=== PATIENT | female | born 1990 | race Caucasian/White ===

== ENCOUNTER 2017-02-10 15:20 | Emergency (ER) | payer OTHER ==
[2017-02-10 15:28] VITALS: BP 119/73
--- NOTE | 2017-02-10 16:43 | ED Physician Documentation ---
PD HPI UPPER EXT INJURY - Stated complaint Stated Complaint: DIRTY INST STICK - Chief complaint Chief Complaint: Ext Problem - History obtained from History obtained from: Patient - History of Present Illness Location: Right, Finger (Puncture by a dirty dental instrument at work last night.She is up-to-date on tetanus.She is up-to-date on tetanus.She is . She is immunized against hepatitis B.) Review of Systems Constitutional: denies: Fever, Chills Cardiac: denies: Chest pain / pressure, Palpitations Respiratory: denies: Dyspnea, Cough PD PAST MEDICAL HISTORY - Past Surgical History Past Surgical History: No General: Cholecystectomy Ortho: Hip replacement - Present Medications Home Medications: Ambulatory Orders Medication Instructions Recorded Confirmed Pnv95/Ferrous Fumarate/FA 1 each PO DAILY 07/22/16 02/10/17 [ Tablet] - Allergies Allergies/Adverse Reactions: Allergies Allergy/AdvReac Type Severity Reaction Status Date / Time No Known Drug Allergies Allergy Verified 02/10/17 16:35 - Social History Does the pt smoke?: No Smoking Status: Never smoker Does the pt drink ETOH?: No Does the pt have substance abuse?: No - Immunizations Immunizations are current?: No Immunizations: TDAP >10years/unknown - POLST Patient has POLST: No PD ED PE NORMAL - Vitals Vital signs reviewed: Yes - General General: Alert and oriented X 3, No acute distress - Extremities Extremities: Other (Almost invisible puncture wound on the right thumb) - Neuro Neuro: Alert and oriented X 3, Normal speech Results - Vitals Vitals: Vital Signs - 24 hr 02/10/17 15:26 Temperature 36.3 C L Heart Rate 85 Respiratory 16 Rate Blood Pressure 119/73 O2 Saturation 99 Oxygen O2 Source Room air PD MEDICAL DECISION MAKING - ED course ED course: We discussed ongoing testing and potential postexposure prophylaxis which she declined. Departure - Departure Disposition: 01 Home, Self Care Clinical Impression: Employee exposure to body fluids Condition: Good Record reviewed to determine appropriate education?: Yes Comments: Talk with your doctor about repeat testing for hepatitis and HIV in 2 months and 6 months.
== END 2017-02-10 17:04 | disposition home or self-care (01) ==
LOC: ED 15:20
DX: Z77.21 Contact with and (suspected) exposure to potentially hazardous body fluids (principal); Z96.649 Presence of unspecified artificial hip joint
CPT/HCPCS: 1040M; 36415; 80074; 87389; 99282; 99283; 87341

== ENCOUNTER 2017-04-25 10:51 | Outpatient (CLI) | payer MEDICAID ==
--- NOTE | 2017-04-25 12:27 | Ultrasound Report ---
PELVIC ULTRASOUND: 04/25/2017 HISTORY: Vaginal bleeding 6 weeks . TECHNIQUE: Real-time scanning by the vault installer with saved static images reviewed. Transabdominal scanning for global evaluation. Transvaginal scanning for improved evaluation of the endometrium. FINDINGS: UTERUS: 8.2 x 4 x 6.1 cm, volume 104 mL. Normal echotexture. ENDOMETRIAL ECHO THICKNESS: 12 mm. In the fundal area, there is an area of increased echogenicity with some shadowing, trace fluid, and increased vascularity. RIGHT OVARY: 5.4 x 1.5 x 2.2 cm, volume 10 mL, normal echotexture and blood flow. LEFT OVARY: 4.5 x 1.5 x 2.2 cm, volume 7.8 mL, normal echotexture and blood flow. FREE FLUID: None. IMPRESSION: SMALL AREA OF INCREASED ECHOGENICITY, SHADOWING, AND VASCULARITY IN THE FUNDAL ENDOMETRIAL REGION, WORRISOME FOR RETAINED PRODUCTS OF CONCEPTION. JOB #: [id number] EXT JOB #: [id number] [facility]
== END 2017-04-25 10:52 | disposition home or self-care (01) ==
LOC: DI 10:51
PROVIDERS: ATTEND Midwife
DX: O72.1 Other immediate postpartum hemorrhage (principal)
CPT/HCPCS: 76830; 76856

== ENCOUNTER 2017-04-30 12:58 | Outpatient (CLI) | payer MEDICAID ==
[2017-04-30 13:33] LABS: BASOPHILS % (AUTO) 0.4 %; EOSINOPHILS # (AUTO) 0.2 10^3/uL (0.0-0.7); HCT - HEMATOCRIT 34.2 % (37.0-47.0); HGB - HEMOGLOBIN 11.6 g/dL (12.0-16.0); LYMPHOCYTES # (AUTO) 2.7 10^3/uL (1.5-3.5); LYMPHOCYTES % (AUTO) 44.2 %; MEAN CORPUSCULAR HEMOGLOBIN 29.8 pg (27.0-31.0); MEAN CORPUSCULAR HGB CONC 33.8 g/dL (32.0-36.0); MEAN CORPUSCULAR VOLUME 88.2 fL (81.0-99.0); MEAN PLATELET VOLUME 7.8 fL (7.9-10.8); MONOCYTES # (AUTO) 0.4 10^3/uL (0.0-1.0); NEUTROPHILS # (AUTO) 2.8 10^3/uL (1.5-6.6); NEUTROPHILS % (AUTO) 46.4 %; NUCLEATED RED BLOOD CELLS AUTO 0.1 /100WBC; RED BLOOD COUNT 3.88 10^6/uL (4.20-5.40); RED CELL DISTRIBUTION WIDTH 12.1 % (12.0-15.0); UNCORRECTED WHITE BLOOD COUNT 6.1 x10^3/uL; WHITE BLOOD COUNT 6.1 x10^3/uL (4.8-10.8)
== END 2017-04-30 12:59 | disposition home or self-care (01) ==
LOC: LAB 12:58
PROVIDERS: ATTEND Obstetrics & Gynecology
DX: Z01.812 Encounter for preprocedural laboratory examination (principal); O73.0 Retained placenta without hemorrhage
CPT/HCPCS: 36415; 81025; 84703; 85025; 86850; 86900; 86901

== ENCOUNTER 2017-05-21 15:51 | Outpatient (CLI) | payer MEDICAID | END 2017-05-21 15:52 | disposition home or self-care (01) | LOC: LAB.R 15:51 | PROVIDERS: ATTEND Obstetrics & Gynecology | DX: Z11.3 Encounter for screening for infections with a predominantly sexual mode of transmission (principal) | CPT/HCPCS: 87491; 87591 ==

== ENCOUNTER 2017-07-10 17:36 | Outpatient (CLI) | payer OTHER | END 2017-07-10 17:37 | disposition critical access hospital (66) | LOC: EMS 17:36 | PROVIDERS: ATTEND Surgery | DX: M54.5 Low back pain (principal) | CPT/HCPCS: A0425; A0429 ==

== ENCOUNTER 2017-07-10 17:51 | Emergency (ER) | payer OTHER ==
[2017-07-10 17:56] VITALS: BP 108/71
[2017-07-10] MEDS ORDERED: CYCLOBENZAPRINE 10 MG TABLET PO STA (19:19)
[2017-07-10] MEDS ORDERED: LIDOCAINE PATCH 5% TOP STA (19:19)
[2017-07-10] MEDS ORDERED: IBUPROFEN 400 MG TABLET PO STA (19:19)
[2017-07-10] MEDS ORDERED: LIDOCAINE PATCH 5% TOP ONE (19:37)
[2017-07-10] MEDS ORDERED: IBUPROFEN 400 MG TABLET PO ONE (19:37)
[2017-07-10] MEDS ORDERED: CYCLOBENZAPRINE 10 MG TABLET PO ONE (19:37)
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
== END 2017-07-10 20:30 | disposition home or self-care (01) ==
LOC: EDUNIT# → ED 17:51
DX: S23.3XXA Sprain of ligaments of thoracic spine, initial encounter (principal); V53.5XXA Driver of pick-up truck or van injured in collision with car, pick-up truck or van in traffic accident, initial encounter; Y92.411 Interstate highway as the place of occurrence of the external cause
CPT/HCPCS: 99283; A9270

== ENCOUNTER 2017-07-31 07:16 | Emergency (ER) | payer OTHER ==
[2017-07-31 07:27] VITALS: BP 123/85
[2017-07-31] MEDS ORDERED: SODIUM CHLORIDE 0.9% 1,000 ML IV ONE (07:28)
[2017-07-31] MEDS ORDERED: ONDANSETRON 4 MG/2 ML VIAL IVP STA (07:28)
--- NOTE | 2017-07-31 07:35 | ED Physician Documentation ---
PD HPI ABD PAIN - Stated complaint Stated Complaint: VOMITING - Chief complaint Chief Complaint: Abd Pain - History obtained from History obtained from: Patient - History of Present Illness Timing - onset: Yesterday Timing - details: Still present in ED Quality: Cramping Location: All over / everywhere Associated symptoms: Fever, Nausea, Vomiting, Diarrhea. No: Dysuria - Additional information Additional information: The patient is a 27-year-old female who presents with vomiting that started last night, with multiple episodes through the night. She reports generalized abdominal discomfort, with lower abdominal cramping. She has had 3 episodes of watery diarrhea, and reports low-grade fever. She denies dysuria. Prior to onset of her abdominal symptoms she reports having upper respiratory symptoms, with cough, sore throat, and headache. Other family members have been sick with cold and flu. She is currently breast-feeding, and has an IUD in place. Review of Systems Constitutional: reports: Fever, Myalgias Ears: denies: Tinnitus/ringing Nose: reports: Congestion Throat: reports: Sore throat (Mild) Cardiac: denies: Chest pain / pressure Respiratory: reports: Cough. denies: Dyspnea GI: reports: Abdominal Pain, Nausea, Vomiting, Diarrhea : reports: Control (IUD). 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 - Present Medications Home Medications: Ambulatory Orders Medication Instructions Recorded Confirmed Promethazine [Phenergan] 25 - 50 mg PO Q6H PRN #10 tab 07/31/17 - Allergies Allergies/Adverse Reactions: Allergies Allergy/AdvReac Type Severity Reaction Status Date / Time No Known Drug Allergies Allergy Verified 05/01/17 14:34 - Social History Does the pt smoke?: No Smoking Status: Never smoker Does the pt drink ETOH?: No Does the pt have substance abuse?: No - Immunizations Immunizations are current?: No Immunizations: TDAP >10years/unknown - POLST Patient has POLST: No PD ED PE NORMAL - Vitals Vital signs reviewed: Yes (Tachycardic) - General General: Alert and oriented X 3, Well developed/nourished - HEENT HEENT: Atraumatic, EOMI, Moist mucous membranes, Pharynx benign - Neck Neck: Supple, no meningeal sign, No adenopathy, No JVD - Cardiac Cardiac: No murmur, Other (Rapid rate, regular rhythm.) - Respiratory Respiratory: No respiratory distress, Clear bilaterally - Abdomen Abdomen: Soft, Non distended, No organomegaly, Other (Decreased bowel tones. Mild lower abdominal tenderness to palpation, without rebound or guarding.) - Back Back: No CVA TTP - Derm Derm: No rash - Extremities Extremities: No edema, No calf tenderness / cord - Neuro Neuro: Alert and oriented X 3, No motor deficit, Normal speech Results - Vitals Vitals: Oxygen O2 Source Room air - Labs Labs: Laboratory Tests 07/31/17 07/31/17 07/31/17 08:05 08:05 08:05 WBC 10.4 RBC 4.48 Hgb 12.5 Hct 36.3 L MCV 81.1 MCH 27.9 MCHC 34.4 RDW 13.0 Plt Count 213 MPV 8.0 Neut # 8.5 H Lymph # 1.4 L [place] # 0.5 Eos # 0.0 Baso # 0.0 Absolute Nucleated RBC 0.00 Nucleated RBC % 0.0 Sodium 137 Potassium 3.6 Chloride 104 Carbon Dioxide 22 Anion Gap 11.0 BUN 15 Creatinine 0.6 Estimated GFR (MDRD) 120 Glucose 101 H Calcium 8.8 Total Bilirubin 0.7 AST 25 ALT 24 Alkaline Phosphatase 91 Total Protein 7.9 Albumin 3.9 Globulin 4.0 Albumin/Globulin Ratio 1.0 Lipase 24 Urine Color YELLOW Urine Clarity CLEAR Urine pH 6.0 Ur Specific [place] 1.025 Urine Protein NEGATIVE Urine Glucose (UA) NEGATIVE Urine Ketones NEGATIVE Urine Occult Blood NEGATIVE Urine Nitrite NEGATIVE Urine Bilirubin NEGATIVE Urine Urobilinogen 0.2 (NORMAL) Ur Leukocyte Esterase NEGATIVE Ur Microscopic Review NOT INDICATED Urine Culture Comments NOT INDICATED Urine HCG, Qual NEGATIVE PD MEDICAL DECISION MAKING - ED course Complexity details: reviewed results, re-evaluated patient, considered differential, d/w patient, d/w family ED course: The patient's presentation is most consistent with acute viral syndrome, with fever,myalgias, cough, vomiting, and diarrhea. CBC and chemistry panel, as well as urinalysis, or normal. Her presentation does not suggest meningitis, pneumonia, or acute abdomen. Treatment in the emergency department included administration of normal saline 1 L IV, and ondansetron 4 mg IV. Her symptoms improved with the above treatment. She is being discharged with a prescription for Phenergan. I discussed with her and her the expected course of illness, symptomatic treatment and outpatient follow-up, as well as worrisome signs or symptoms that should prompt reevaluation in the emergency department. Departure - Departure Disposition: 01 Home, Self Care Clinical Impression: Acute viral syndrome Condition: Stable Instructions: ED Viral Syndrome Follow-Up: ROSE ZENG MD [Physician No Access] - Prescriptions: Promethazine [Phenergan] 25 - 50 mg PO Q6H PRN #10 tab PRN Reason: Nausea / Vomiting Comments: Drink plenty of fluids. You can use Tylenol or ibuprofen if needed for fever or discomfort. You can use Phenergan as prescribed if needed for nausea. Follow up with your primary physician within 1-2 weeks. Call to schedule an appointment. Return to the emergency department if you develop increasing difficulty breathing, persistent vomiting, or otherwise worsening symptoms. Forms: Activity restrictions Discharge Date/Time: 07/31/17 10:16
[2017-07-31 08:21] LABS: BASOPHILS % (AUTO) 0.2 %; EOSINOPHILS % (AUTO) 0.4 %; HGB - HEMOGLOBIN 12.5 g/dL (12.0-16.0); LYMPHOCYTES # (AUTO) 1.4 10^3/uL (1.5-3.5); MEAN CORPUSCULAR HEMOGLOBIN 27.9 pg (27.0-31.0); MEAN CORPUSCULAR HGB CONC 34.4 g/dL (32.0-36.0); MEAN CORPUSCULAR VOLUME 81.1 fL (81.0-99.0); MONOCYTES # (AUTO) 0.5 10^3/uL (0.0-1.0); MONOCYTES % (AUTO) 4.5 %; NEUTROPHILS # (AUTO) 8.5 10^3/uL (1.5-6.6); NEUTROPHILS % (AUTO) 81.9 %; PLT - PLATELET COUNT 213 10^3/uL (130-450); RED BLOOD COUNT 4.48 10^6/uL (4.20-5.40); WHITE BLOOD COUNT 10.4 x10^3/uL (4.8-10.8)
[2017-07-31 08:33] LABS: BILIRUBIN,URINE NEGATIVE (NEGATIVE); GLUCOSE, URINE (UA) NEGATIVE (NEGATIVE); KETONES,URINE (UA) NEGATIVE (NEGATIVE); LEUKOCYTE ESTERASE, URINE NEGATIVE (NEGATIVE); NITRITE,URINE NEGATIVE (NEGATIVE); OCCULT BLOOD,URINE NEGATIVE (NEGATIVE); PROTEIN,URINE NEGATIVE (NEGATIVE); UROBILINOGEN,URINE 0.2 (NORMAL) E.U./dL (NORMAL)
[2017-07-31 08:34] LABS: ALBUMIN 3.9 g/dL (3.2-5.5); BILIRUBIN,TOTAL 0.7 mg/dL (0.2-1.0); CALCIUM 8.8 mg/dL (8.5-10.3); CREATININE 0.6 mg/dL (0.4-1.0); TOTAL PROTEIN 7.9 g/dL (6.7-8.2)
[2017-07-31 08:35] LABS: CLARITY,URINE CLEAR (CLEAR)
[2017-07-31 08:36] LABS: HCG UR QUAL NEGATIVE
== END 2017-07-31 10:16 | disposition home or self-care (01) ==
LOC: ED 07:16
DX: B34.9 Viral infection, unspecified (principal); Z97.5 Presence of (intrauterine) contraceptive device
CPT/HCPCS: 36415; 80053; 81001; 81003; 81025; 83690; 85025; 87086; 96361; 96374; 99283; 99284

== ENCOUNTER 2018-08-08 08:15 | Emergency (ER) | payer OTHER ==
--- NOTE | 2018-08-08 08:28 | ED Physician Documentation ---
History of Present Illness - Stated complaint Stated Complaint: VOMITING - Chief complaint Chief Complaint: Abd Pain - Additonal information Additional information: hx from pt healthy 28 y/o f doubts pregnnat has IUD ate [employer] cheese sticks and nachos at [employer] last night on the way home had a stomach ache - upper crampy then NVD all night no blood no travel no sick contacts Review of Systems Constitutional: denies: Fever Cardiac: denies: Chest pain / pressure Respiratory: denies: Dyspnea GI: reports: Abdominal Pain, Nausea, Vomiting, Diarrhea : reports: Control (IUD). 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 - Present Medications Home Medications: Ambulatory Orders Medication Instructions Recorded Confirmed Cyclobenzaprine [Flexeril] 10 mg PO TID PRN 08/08/18 08/08/18 Dicyclomine [Bentyl] 10 mg PO Q8H PRN #20 capsule 08/08/18 Ibuprofen 600 mg PO BID PRN 08/08/18 08/08/18 Ondansetron Odt [Zofran] 4 mg TL Q6H PRN #10 tablet 08/08/18 raNITIdine [Zantac] 150 mg PO BID #60 tablet 08/08/18 - Allergies Allergies/Adverse Reactions: Allergies Allergy/AdvReac Type Severity Reaction Status Date / Time No Known Drug Allergies Allergy Verified 08/08/18 08:26 - Social History Does the pt smoke?: No Smoking Status: Never smoker Does the pt drink ETOH?: No Does the pt have substance abuse?: No - Immunizations Immunizations are current?: No Immunizations: TDAP >10years/unknown - POLST Patient has POLST: No PD ED PE NORMAL - Vitals Vital signs reviewed: Yes - General General: Alert and oriented X 3 - HEENT HEENT: PERRL - Neck Neck: Supple, no meningeal sign - Cardiac Cardiac: RRR - Respiratory Respiratory: No respiratory distress, Clear bilaterally - Abdomen Abdomen: Soft, Other (TTP upper abd s rebound or gaurding, neg murphys) - Neuro Neuro: Alert and oriented X 3 Results - Vitals Vitals: Vital Signs - 24 hr 08/08/18 08/08/18 08:22 09:12 Temperature 36.8 C Heart Rate 102 H 85 Respiratory 18 16 Rate Blood Pressure 123/80 110/75 O2 Saturation 99 99 Oxygen O2 Source Room air - Labs Labs: Laboratory Tests 08/08/18 08/08/18 08/08/18 08:24 08:40 08:40 WBC 9.1 RBC 4.41 Hgb 13.1 Hct 38.3 MCV 86.8 MCH 29.7 MCHC 34.2 RDW 12.5 Plt Count 202 MPV 8.2 Neut # (Auto) 7.9 H Lymph # (Auto) 0.8 L [place] # (Auto) 0.3 Eos # (Auto) 0.1 Baso # (Auto) 0.0 Absolute Nucleated RBC 0.00 Nucleated RBC % 0.0 Sodium 135 Potassium 3.5 Chloride 104 Carbon Dioxide 23 Anion Gap 8.0 BUN 11 Creatinine 0.6 Estimated GFR (MDRD) 119 Glucose 107 H Calcium 8.7 Total Bilirubin 1.4 H AST 18 ALT 18 Alkaline Phosphatase 57 Total Protein 8.1 Albumin 4.2 Globulin 3.9 Albumin/Globulin Ratio 1.1 Lipase 29 Urine Color YELLOW Urine Clarity CLEAR Urine pH 6.0 Ur Specific [place] 1.020 Urine Protein NEGATIVE Urine Glucose (UA) NEGATIVE Urine Ketones TRACE Urine Occult Blood TRACE-INTA Urine Nitrite NEGATIVE Urine Bilirubin NEGATIVE Urine Urobilinogen 0.2 (NORMAL) Ur Leukocyte Esterase TRACE H Urine RBC 0-5 Urine WBC 0-3 Ur Squamous Epith Cells FEW Squamous Urine Bacteria Few Ur Microscopic Review INDICATED Urine Culture Comments INDICATED Urine HCG, Qual NEGATIVE PD MEDICAL DECISION MAKING - ED course ED course: bili noted - pt s/p burt and no foal ruq pain much much better after IVF toradol pepcid zofran and phenergan stool cx pending serial abd exam = no more TTP will dc Departure - Departure Disposition: 01 Home, Self Care Clinical Impression: Food poisoning Qualifiers: Encounter type: initial encounter Injury intent: accidental or unintentional Qualified Code(s): T62.91XA - Toxic effect of unspecified noxious substance eaten as food, accidental (unintentional), initial encounter Condition: Good Instructions: ED Gastroenteritis Vs Food Poison Prescriptions: Dicyclomine [Bentyl] 10 mg PO Q8H PRN #20 capsule PRN Reason: Stomach cramps Ondansetron Odt [Zofran] 4 mg TL Q6H PRN #10 tablet PRN Reason: Nausea / Vomiting raNITIdine [Zantac] 150 mg PO BID #60 tablet Comments: Rest and drink plenty of fluids. The ER staff will call you if the stool culture results indicate you need to be on antibiotics. Follow up with your PMD if not better by Saturday Return to the ER if worse Forms: Activity restrictions
[2018-08-08] MEDS ORDERED: FAMOTIDINE 20 MG/50 ML 50 ML IV ONE (08:29)
[2018-08-08] MEDS ORDERED: SODIUM CHLORIDE 0.9% 1,000 ML IV ONE (08:29)
[2018-08-08] MEDS ORDERED: ONDANSETRON 4 MG/2 ML VIAL IVP STA (08:29)
[2018-08-08 08:49] LABS: BASOPHILS % (AUTO) 0.1 %; EOSINOPHILS # (AUTO) 0.1 10^3/uL (0.0-0.7); EOSINOPHILS % (AUTO) 0.6 %; HGB - HEMOGLOBIN 13.1 g/dL (12.0-16.0); LYMPHOCYTES # (AUTO) 0.8 10^3/uL (1.5-3.5); LYMPHOCYTES % (AUTO) 8.8 %; MEAN CORPUSCULAR HEMOGLOBIN 29.7 pg (27.0-31.0); MEAN CORPUSCULAR HGB CONC 34.2 g/dL (32.0-36.0); MEAN CORPUSCULAR VOLUME 86.8 fL (81.0-99.0); MEAN PLATELET VOLUME 8.2 fL (7.9-10.8); MONOCYTES # (AUTO) 0.3 10^3/uL (0.0-1.0); NEUTROPHILS # (AUTO) 7.9 10^3/uL (1.5-6.6); NEUTROPHILS % (AUTO) 87.5 %; PLT - PLATELET COUNT 202 10^3/uL (130-450); RED BLOOD COUNT 4.41 10^6/uL (4.20-5.40); RED CELL DISTRIBUTION WIDTH 12.5 % (12.0-15.0); WHITE BLOOD COUNT 9.1 x10^3/uL (4.8-10.8)
[2018-08-08 09:00] LABS: ALBUMIN 4.2 g/dL (3.2-5.5); ALBUMIN/GLOBULIN RATIO 1.1 (1.0-2.2); BILIRUBIN,TOTAL 1.4 mg/dL (0.2-1.0); CALCIUM 8.7 mg/dL (8.5-10.3); CREATININE 0.6 mg/dL (0.4-1.0); TOTAL PROTEIN 8.1 g/dL (6.7-8.2)
[2018-08-08 09:04] LABS: BILIRUBIN,URINE NEGATIVE (NEGATIVE); GLUCOSE, URINE (UA) NEGATIVE (NEGATIVE); KETONES,URINE (UA) TRACE mg/dL (NEGATIVE); LEUKOCYTE ESTERASE, URINE TRACE (NEGATIVE); NITRITE,URINE NEGATIVE (NEGATIVE); OCCULT BLOOD,URINE TRACE-INTA (NEGATIVE); PROTEIN,URINE NEGATIVE (NEGATIVE); UROBILINOGEN,URINE 0.2 (NORMAL) E.U./dL (NORMAL)
[2018-08-08 09:06] LABS: CLARITY,URINE CLEAR (CLEAR); HCG UR QUAL NEGATIVE
[2018-08-08 09:13] VITALS: BP 110/75
[2018-08-08 09:18] LABS: BACTERIA,URINE Few /HPF (None Seen); RBC,URINE 0-5 /HPF (0-5); SQUAMOUS EPITHELIAL CELL,UR FEW Squamous (<= Few)
[2018-08-08] MEDS ORDERED: KETOROLAC 30 MG/ML VIAL IVP STA (09:36)
[2018-08-08] MEDS ORDERED: PROMETHAZINE INJ 25 MG in SODIUM CHLORIDE 0.9% 50 ML IV STA (10:13)
== END 2018-08-08 12:06 | disposition home or self-care (01) ==
LOC: ED 08:15
DX: T62.91XA Toxic effect of unspecified noxious substance eaten as food, accidental (unintentional), initial encounter (principal); Z96.649 Presence of unspecified artificial hip joint
CPT/HCPCS: 36415; 80053; 81001; 81025; 83690; 85025; 87045; 87046; 87086; 96365; 96367; 96375; 99283; 99284; J7040; 81003

== ENCOUNTER 2019-10-09 14:28 | Outpatient (CLI) | payer OTHER ==
--- NOTE | 2019-10-09 15:13 | CT Report ---
Reason: CHRONIC SINUSITIS Procedure Date: 10/09/2019 Accession Number: [id number] / [id number] Procedure: CT - Sinuses CPT Code: Final Report FULL RESULT: EXAM: CT SINUS EXAM DATE: 10/09/2019 02:39 PM. HISTORY: 29-year-old presenting with chronic sinusitis-type symptoms. Evaluate for sinus pathology. COMPARISONS: None. TECHNIQUE: Routine multi-axial CT imaging performed through the sinuses. Iodinated IV contrast: None. Reconstructions: Multiplanar reformats. In accordance with CT protocol optimization, one or more of the following dose reduction techniques were utilized for this exam: automated exposure control, adjustment of mA and/or KV based on patient size, or use of iterative reconstructive technique. FINDINGS: RIGHT Frontal: Minimal mucosal thickening. Ethmoid: Normal. Maxillary: Normal. Sphenoid: Normal. Drainage Pathways: The frontal recess, ostiomeatal complex and sphenoethmoidal recess are patent and normal. LEFT Frontal: Minimal mucosal thickening. Ethmoid: Minimal mucosal thickening with opacification of a single ethmoid air cell. Maxillary: Minimal mucosal thickening. Sphenoid: Tiny mucosal retention cyst versus polyp. Drainage Pathways: The frontal recess, ostiomeatal complex and sphenoethmoidal recess are patent and normal. Nasal Cavity: Normal. No mass or significant anatomic abnormality evident. Osseous Structures: Unremarkable. Orbits: Unremarkable. Other: None. IMPRESSION: 1. Minimal mucosal thickening of the bilateral frontal sinuses, left ethmoid air cells, and left maxillary sinus. 2. Visualized major paranasal sinus drainage pathways appear patent. RADIA
== END 2019-10-09 14:29 | disposition home or self-care (01) ==
LOC: DI 14:28
PROVIDERS: ATTEND Otolaryngology
DX: J32.9 Chronic sinusitis, unspecified (principal)
CPT/HCPCS: 70486

== ENCOUNTER 2019-12-03 10:43 | Outpatient (CLI) | payer MEDICAID ==
--- NOTE | 2019-12-03 12:06 | Ultrasound Report ---
Reason: TEST POSITIVE Procedure Date: 12/03/2019 Accession Number: [id number] / [id number] Procedure: US - OB First Trimester CPT Code: Final Report FULL RESULT: EXAM: FIRST TRIMESTER OBSTETRIC ULTRASOUND (Less than 11 weeks) EXAM DATE: 12/03/2019 11:28 AM. CLINICAL HISTORY: TEST POSITIVE. LMP: 10/15/2019. COMPARISONS: None. TECHNIQUE: Transabdominal ultrasound examination with static image documentation. CLINICAL DATES: EGA 7 weeks 0 days with ADELIA 07/21/2020 based on LMP. ASSESSMENT: Gestational Sac: Single intrauterine. Normal shape. Mean gestational sac diameter: 23.9 mm = 7 weeks 3 days. Embryo: CRL (crown-rump length) 9.9 mm = 7 weeks 0 days (ADELIA 07/21/2020). Cardiac activity: 144 beats per minute. Yolk sac: 3.6 mm. Amniotic fluid: Not accurately assessed at this gestational age. Early placenta: Not visible at this gestational age. Other: No perigestational fluid collection demonstrated. MATERNAL STRUCTURES: Uterus: Anteverted. Unremarkable. Cervix: Closed. Right Ovary/Adnexa: The ovary measures 3.9 x 3.0 x 1.8 cm, volume 11.0 cc. Probable 1.9 cm corpus luteum. Left Ovary/Adnexa: The ovary measures 3.1 x 1.9 x 2.3 cm, volume 7.1 cc. Unremarkable. Free Fluid: None. Other: None. IMPRESSION: 1. Single viable intrauterine at EGA 7 weeks 0 days with ADELIA 07/21/2020 based on crown-rump length, which is concordant with clinical dates. 2. Assigned dating is ADELIA 07/21/2020 based on LMP. ANUPAM
== END 2019-12-03 10:44 | disposition home or self-care (01) ==
LOC: DI 10:43
PROVIDERS: ATTEND Advanced Practice Midwife
DX: Z32.01 Encounter for pregnancy test, result positive (principal)
CPT/HCPCS: 76801; 76817

== ENCOUNTER 2019-12-24 08:00 | Outpatient (CLI) | payer MEDICAID ==
[2019-12-24 21:47] LABS: TRICHOMONAS VAGINALIS DNA UNRESOLVED (NEGATIVE)
== END 2019-12-24 23:59 | disposition home or self-care (01) ==
LOC: LAB.R 08:00
PROVIDERS: ATTEND Obstetrics & Gynecology
DX: Z11.3 Encounter for screening for infections with a predominantly sexual mode of transmission (principal)
CPT/HCPCS: 87491; 87591; 87661

== ENCOUNTER 2020-01-19 13:11 | Outpatient (CLI) | payer MEDICAID ==
[2020-01-19 13:12] LABS: MUDS CUTOFF CONCENTRATIONS CUTOFF CONC BELOW:
[2020-01-19 18:28] LABS: BILIRUBIN,URINE NEGATIVE (NEGATIVE); GLUCOSE, URINE (UA) NEGATIVE (NEGATIVE); KETONES,URINE (UA) NEGATIVE (NEGATIVE); LEUKOCYTE ESTERASE, URINE NEGATIVE (NEGATIVE); NITRITE,URINE NEGATIVE (NEGATIVE); OCCULT BLOOD,URINE NEGATIVE (NEGATIVE); PROTEIN,URINE NEGATIVE (NEGATIVE); UROBILINOGEN,URINE 0.2 (NORMAL) E.U./dL (NORMAL)
[2020-01-19 18:34] LABS: BASOPHILS % (AUTO) 0.2 %; EOSINOPHILS # (AUTO) 0.1 10^3/uL (0.0-0.7); EOSINOPHILS % (AUTO) 0.8 %; LYMPHOCYTES # (AUTO) 1.9 10^3/uL (1.5-3.5); LYMPHOCYTES % (AUTO) 28.3 %; MEAN CORPUSCULAR HEMOGLOBIN 29.5 pg (27.0-31.0); MEAN CORPUSCULAR HGB CONC 32.3 g/dL (32.0-36.0); MEAN CORPUSCULAR VOLUME 91.4 fL (81.0-99.0); MEAN PLATELET VOLUME 10.9 fL (7.9-10.8); MONOCYTES # (AUTO) 0.4 10^3/uL (0.0-1.0); MONOCYTES % (AUTO) 6.5 %; NEUTROPHILS # (AUTO) 4.2 10^3/uL (1.5-6.6); NEUTROPHILS % (AUTO) 63.9 %; PLT - PLATELET COUNT 200 10^3/uL (130-450); RED BLOOD COUNT 3.39 10^6/uL (4.20-5.40); RED CELL DISTRIBUTION WIDTH 13.7 % (12.0-15.0); WHITE BLOOD COUNT 6.6 x10^3/uL (4.8-10.8)
[2020-01-19 18:38] LABS: CLARITY,URINE CLEAR (CLEAR)
[2020-01-19 18:46] LABS: AMPHETAMINE SCREEN,URINE NEGATIVE (NEGATIVE); BACTERIA,URINE Moderate /HPF (None Seen); BENZODIAZEPINES SCREEN, URINE NEGATIVE (NEGATIVE); COCAINE SCREEN URINE NEGATIVE (NEGATIVE); METHADONE SCREEN, URINE NEGATIVE (NEGATIVE); METHAMPHETAMINES SCREEN, URINE NEGATIVE (NEGATIVE); OPIATE SCREEN, URINE NEGATIVE (NEGATIVE); RBC,URINE 0-5 /HPF (0-5); SQUAMOUS EPITHELIAL CELL,UR MOD Squamous (<= Few); TRICYCLIC ANTIDEPRESSANT,URINE NEGATIVE (NEGATIVE)
[2020-01-19 18:47] LABS: OXYCODONE SCREEN, URINE NEGATIVE (NEGATIVE); PROPOXYPHENE SCREEN, URINE NEGATIVE (NEGATIVE)
[2020-01-21 12:59] LABS: HEPATITIS B SURFACE ANTIGEN NON-REACTIVE (NON-REACTIVE); HEPATITIS C ANTIBODY NON-REACTIVE (NON-REACTIVE)
[2020-01-21 13:13] LABS: HIV AG/AB 4TH GEN NON-REACTIVE (NON-REACTIVE)
== END 2020-01-19 23:59 | disposition home or self-care (01) ==
LOC: LAB.WCP 13:11
PROVIDERS: ATTEND Obstetrics & Gynecology
DX: Z34.90 Encounter for supervision of normal pregnancy, unspecified, unspecified trimester (principal)
CPT/HCPCS: 36415; 80306; 81001; 81599; 85025; 86592; 86762; 86803; 86850; 86900; 86901; 87086; 87340; 87389

== ENCOUNTER 2020-01-25 10:15 | Outpatient (CLI) | payer MEDICAID ==
[2020-01-25 21:13] LABS: TRICHOMONAS VAGINALIS DNA NEGATIVE (NEGATIVE)
== END 2020-01-25 23:59 | disposition home or self-care (01) ==
LOC: LAB.R 10:15
PROVIDERS: ATTEND Obstetrics & Gynecology
DX: Z34.90 Encounter for supervision of normal pregnancy, unspecified, unspecified trimester (principal)
CPT/HCPCS: 87491; 87591; 87661

== ENCOUNTER 2020-02-18 12:30 | Outpatient (CLI) | payer MEDICAID ==
[2020-02-18 19:52] LABS: % IRON SATURATION 25 % (20-50); IRON 103 ug/dL (28-170); TOTAL IRON BINDING CAPACITY 409 ug/dL (250-450); TRANSFERRIN 292 mg/dL (192-382)
== END 2020-02-18 23:59 | disposition home or self-care (01) ==
LOC: LAB.WCP 12:30
PROVIDERS: ATTEND Obstetrics & Gynecology
DX: O99.019 Anemia complicating pregnancy, unspecified trimester (principal)
CPT/HCPCS: 36415; 81511; 81599; 82728; 83021; 83540; 84466; 85014; 85018; 85041

== ENCOUNTER 2020-02-25 08:00 | Outpatient (CLI) | payer MEDICAID | END 2020-02-25 08:01 | disposition home or self-care (01) | LOC: LAB.R 08:00 | PROVIDERS: ATTEND Obstetrics & Gynecology | DX: R30.0 Dysuria (principal) | CPT/HCPCS: 87086 ==

== ENCOUNTER 2020-06-21 11:35 | Outpatient (CLI) | payer MEDICAID ==
[2020-06-21 12:24] LABS: % IRON SATURATION 16 % (20-50); IRON 85 ug/dL (28-170); TOTAL IRON BINDING CAPACITY 539 ug/dL (250-450); TRANSFERRIN 385 mg/dL (192-382)
== END 2020-06-21 11:36 | disposition home or self-care (01) ==
LOC: LAB 11:35
PROVIDERS: ATTEND Midwife
DX: Z34.03 Encounter for supervision of normal first pregnancy, third trimester (principal)
CPT/HCPCS: 36415; 82728; 83540; 84466

== ENCOUNTER 2020-10-14 07:00 | Outpatient (CLI) | payer MEDICAID ==
[2020-10-14 21:30] LABS: CHLAMYDIA TRACHOMATIS DNA NEGATIVE (NEGATIVE); NEISSERIA GONORRHOEAE DNA NEGATIVE (NEGATIVE); TRICHOMONAS VAGINALIS DNA NEGATIVE (NEGATIVE)
== END 2020-10-14 23:59 | disposition home or self-care (01) ==
LOC: LAB.R 07:00
PROVIDERS: ATTEND Obstetrics & Gynecology
DX: Z11.3 Encounter for screening for infections with a predominantly sexual mode of transmission (principal)
CPT/HCPCS: 87491; 87591; 87661

== ENCOUNTER 2021-06-06 08:00 | Outpatient (CLI) | payer MEDICAID ==
[2021-06-06 16:20] LABS: BILIRUBIN,URINE NEGATIVE (NEGATIVE); GLUCOSE, URINE (UA) NEGATIVE (NEGATIVE); KETONES,URINE (UA) NEGATIVE (NEGATIVE); LEUKOCYTE ESTERASE, URINE NEGATIVE (NEGATIVE); NITRITE,URINE NEGATIVE (NEGATIVE); OCCULT BLOOD,URINE NEGATIVE (NEGATIVE); PROTEIN,URINE NEGATIVE (NEGATIVE); UROBILINOGEN,URINE 0.2 (NORMAL) E.U./dL (NORMAL)
[2021-06-06 16:21] LABS: CLARITY,URINE CLEAR (CLEAR)
[2021-06-06 16:43] LABS: BACTERIA,URINE None Seen /HPF (None Seen); RBC,URINE None Seen /HPF (0-5); SQUAMOUS EPITHELIAL CELL,UR RARE Squamous (<= Few); WBC,URINE 0-3 /HPF (0-5)
[2021-06-06 21:37] LABS: BACTERIAL VAGINOSIS DNA POSITIVE (NEGATIVE); CANDIDA GLABRATA DNA NEGATIVE (NEGATIVE); CANDIDA GROUP DNA NEGATIVE (NEGATIVE); CANDIDA KRUSEI DNA NEGATIVE (NEGATIVE); TRICHOMONAS VAGINALIS DNA NEGATIVE (NEGATIVE)
[2021-06-06 21:59] LABS: CHLAMYDIA TRACHOMATIS DNA NEGATIVE (NEGATIVE); NEISSERIA GONORRHOEAE DNA NEGATIVE (NEGATIVE); TRICHOMONAS VAGINALIS DNA NEGATIVE (NEGATIVE)
== END 2021-06-06 23:59 | disposition home or self-care (01) ==
LOC: LAB 08:00
PROVIDERS: ATTEND Obstetrics & Gynecology
DX: R10.2 Pelvic and perineal pain (principal)
CPT/HCPCS: 81001; 87086; 87491; 87591; 87661; 87801

== ENCOUNTER 2021-07-10 15:49 | Outpatient (CLI) | payer MEDICAID ==
--- NOTE | 2021-07-10 16:37 | XRAY Report ---
PROCEDURE: Lumbar Spine 2 View INDICATIONS: LOW BACK PX TECHNIQUE: 2 views of the lumbar spine were acquired. COMPARISON: None. FINDINGS: Bones: 5 [id number] vertebrae are present. L6 versus lumbarization of S1. There is normal bony alignment. No vertebral body compression fractures. No suspicious bony lesions. Soft tissues: Overlying bowel gas pattern is normal. No suspicious soft tissue calcifications. IMPRESSION: 1. No acute osseous abnormality. Reviewed by: Aryan Walker MD on 07/10/2021 4:36 PM [facility] Approved by: Aryan Walker MD on 07/10/2021 4:36 PM [facility] Station ID: [id number]
== END 2021-07-10 15:50 | disposition home or self-care (01) ==
LOC: DI 15:49
PROVIDERS: ATTEND Internal Medicine
DX: M54.40 Lumbago with sciatica, unspecified side (principal)

== ENCOUNTER 2021-09-05 13:16 | Outpatient (CLI) | payer MEDICAID ==
--- NOTE | 2021-09-05 15:15 | Ultrasound Report ---
PROCEDURE: Pelvic w/Transvaginal INDICATIONS: PELVIC PAIN TECHNIQUE: Real-time scanning was performed of the pelvic organs, with image documentation. Additional endovagi nal scanning was necessary due to incomplete visualization of the adnexal and endometrial structures by transabdominal scanning. COMPARISON: None. FINDINGS: The uterine body is anteverted measuring 3.6 x 6.1 x 8.8 cm. No uterine mass. Homogeneous and normal uterine echogenicity/echotexture. The endometrium measures 10 mm in double layer thickness. Normal po sition of IUD. Right ovarian cyst measuring 2.2 cm likely hemorrhagic cyst. The right ovary measures 2.3 x 2.4 x 4.3 cm. Left ovary normal and unremarkable measuring 1.5 x 1.5 x 3.6 cm. IMPRESSION: Normal position of IUD. Otherwise normal study. Reviewed by: Burke Light MD on 09/05/2021 3:14 PM PST Approved by: Burke Light MD on 09/05/2021 3:14 PM PST Station ID: [id number]
== END 2021-09-05 13:17 | disposition home or self-care (01) ==
LOC: DI 13:16
PROVIDERS: ATTEND Obstetrics & Gynecology
DX: R10.2 Pelvic and perineal pain (principal); Z97.5 Presence of (intrauterine) contraceptive device

== ENCOUNTER 2021-12-22 14:52 | Emergency (ER) | payer MEDICAID ==
[2021-12-22] MEDS ORDERED: ONDANSETRON 4 MG/2 ML VIAL IVP STA (15:46)
[2021-12-22] MEDS ORDERED: KETOROLAC 30 MG/ML VIAL IVP STA (15:46)
[2021-12-22] MEDS ORDERED: SODIUM CHLORIDE 0.9% 1,000 ML IV STA ×2 (15:46→18:09)
[2021-12-22 15:56] LABS: BASOPHILS % (AUTO) 0.2 %; EOSINOPHILS % (AUTO) 0.2 %; HCT - HEMATOCRIT 39.1 % (37.0-47.0); LYMPHOCYTES # (AUTO) 1.5 10^3/uL (1.5-3.5); LYMPHOCYTES % (AUTO) 13.1 %; MEAN CORPUSCULAR HEMOGLOBIN 29.8 pg (27.0-31.0); MEAN CORPUSCULAR HGB CONC 33.2 g/dL (32.0-36.0); MEAN CORPUSCULAR VOLUME 89.7 fL (81.0-99.0); MEAN PLATELET VOLUME 9.7 fL (7.9-10.8); MONOCYTES # (AUTO) 0.5 10^3/uL (0.0-1.0); MONOCYTES % (AUTO) 4.8 %; NEUTROPHILS # (AUTO) 9.2 10^3/uL (1.5-6.6); NEUTROPHILS % (AUTO) 81.4 %; PLT - PLATELET COUNT 219 10^3/uL (130-450); RED BLOOD COUNT 4.36 10^6/uL (4.20-5.40); RED CELL DISTRIBUTION WIDTH 12.3 % (12.0-15.0); WHITE BLOOD COUNT 11.3 x10^3/uL (4.8-10.8)
[2021-12-22] MEDS: SODIUM CHLORIDE 0.9% 1,000 ML IV STA ×2 (15:59→16:57)
--- NOTE | 2021-12-22 16:12 | ED Physician Documentation ---
History of Present Illness - Stated complaint Stated Complaint: NAUSEA,BODY ACHES - Chief complaint Chief Complaint: Neuro - History obtained from History obtained from: Patient, Family - History of Present Illness Timing: Today Pain level max: 6 Pain level now: 5 - Additonal information Additional information: Patient is a 31-year-old female who presents to the emergency department stating that she had a smoothie this morning for breakfast. She went to [employer]. She states that she was having pain in her hips which is chronic for her, decided to go sit in a hot tub. When she got out of the hot tub she felt lightheaded, dizzy and nauseated. She states that she went inside to lie down but is still feeling lightheaded. No chest pain. No shortness of breath. She states that she is having pelvic pain but this is chronic for her and unchanged. She states she does have an IUD and it has been recently ultrasounded to ensure it is in the proper place. No fevers. No chills. Some nausea but no vomiting. No diarrhea. No constipation. No recent illnesses. Worse with standing, better with rest. The room is not spinning. She feels lightheaded when standing Review of Systems Constitutional: denies: Fever, Chills Ears: denies: Ear pain Nose: denies: Rhinorrhea / runny nose, Congestion Cardiac: denies: Chest pain / pressure, Palpitations Respiratory: denies: Cough GI: reports: Nausea. denies: Vomiting, Diarrhea Skin: denies: Rash Musculoskeletal: denies: Neck pain, Back pain Neurologic: reports: Generalized weakness. denies: Focal weakness, Numbness, Headache, Head injury, LOC PD PAST MEDICAL HISTORY - Past Medical History Cardiovascular: None Respiratory: None Endocrine/Autoimmune: None - Past Surgical History Past Surgical History: No General: Cholecystectomy Ortho: Hip replacement /[employer]: Dilation and currettage - Present Medications Home Medications: Ambulatory Orders Medication Instructions Recorded Confirmed Multivitamin 1 tab PO DAILY 12/22/21 12/22/21 Nitrofurantoin [Macrobid] 100 mg PO BID #10 cap 12/22/21 Ondansetron Odt [Zofran] 4 mg TL Q6H PRN #10 tablet 12/22/21 - Allergies Allergies/Adverse Reactions: Allergies Allergy/AdvReac Type Severity Reaction Status Date / Time No Known Drug Allergies Allergy Verified 08/08/18 08:26 - Social History Does the pt smoke?: No Smoking Status: Never smoker Does the pt drink ETOH?: No Does the pt have substance abuse?: No - Immunizations Immunizations are current?: No Immunizations: TDAP >10years/unknown - POLST Patient has POLST: No PD ED PE NORMAL - Vitals Vital signs reviewed: Yes - General General: Alert and oriented X 3, No acute distress, Well developed/nourished - HEENT HEENT: PERRL, Moist mucous membranes - Neck Neck: Supple, no meningeal sign - Cardiac Cardiac: RRR, No murmur, Strong equal pulses - Respiratory Respiratory: No respiratory distress, Clear bilaterally - Abdomen Abdomen: Soft, Non tender, Non distended - Derm Derm: Warm and dry - Extremities Extremities: No edema, No calf tenderness / cord - Neuro Neuro: Alert and oriented X 3, 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, No motor deficit, No sensory deficit, Normal speech Eye Opening: Spontaneous Motor: Obeys Commands Verbal: Oriented GCS Score: 15 - Psych Psych: Normal mood, Normal affect Results - Vitals Vitals: Vital Signs - 24 hr 12/22/21 12/22/21 12/22/21 15:01 17:29 19:00 Temperature 36.6 C Heart Rate 86 68 63 Respiratory 14 13 15 Rate Blood Pressure 109/69 100/61 101/57 L O2 Saturation 100 99 100 Oxygen O2 Source Room air - EKG (time done) 1604 Rate: Rate (enter#) (66) Rhythm: NSR [place]: Normal Intervals: Normal AR QRS: Normal Ischemia: Normal ST segments - Labs Labs: Laboratory Tests 12/22/21 12/22/21 12/22/21 15:51 15:51 17:24 WBC 11.3 H RBC 4.36 Hgb 13.0 Hct 39.1 MCV 89.7 MCH 29.8 MCHC 33.2 RDW 12.3 Plt Count 219 MPV 9.7 Neut # (Auto) 9.2 H Lymph # (Auto) 1.5 [place] # (Auto) 0.5 Eos # (Auto) 0.0 Baso # (Auto) 0.0 Absolute Nucleated RBC 0.00 Nucleated RBC % 0.0 Sodium 137 Potassium 3.6 Chloride 104 Carbon Dioxide 24 Anion Gap 9.0 BUN 13 Creatinine 0.8 Estimated GFR (MDRD) 84 L Glucose 99 Calcium 9.2 Total Bilirubin 1.1 H AST 20 ALT 16 Alkaline Phosphatase 49 Total Protein 7.9 Albumin 4.3 Globulin 3.6 Albumin/Globulin Ratio 1.2 Lipase 34 Urine Color YELLOW Urine Clarity HAZY Urine pH 5.5 Ur Specific [place] 1.020 Urine Protein NEGATIVE Urine Glucose (UA) NEGATIVE Urine Ketones 40 H Urine Occult Blood NEGATIVE Urine Nitrite NEGATIVE Urine Bilirubin NEGATIVE Urine Urobilinogen 0.2 (NORMAL) Ur Leukocyte Esterase TRACE H Urine RBC 0-5 Urine WBC 4-5 Ur Squamous Epith Cells FEW Squamous Urine Bacteria Rare Urine Mucus Moderate Strands Ur Microscopic Review INDICATED Urine Culture Comments INDICATED Urine HCG, Qual NEGATIVE PD MEDICAL DECISION MAKING - ED course Complexity details: reviewed results, re-evaluated patient, considered differential, d/w patient, d/w family ED course: Symptoms resolved with IV fluids. She does appear to have a UTI and we will treat her for this. She states she does have mild dysuria. She had attributed this to the dehydration. Nausea and vomiting resolved. Ambulating without difficulty. Blood pressure improved. Likely orthostatic hypotension from dehydration. No evidence of cardiac arrhythmia, subarachnoid hemorrhage. Patient counseled regarding signs and symptoms for which I believe and urgent re-evaluation would be necessary. Patient with good understanding of and agreement to plan and is comfortable going home at this time This document was made in part using voice recognition software. While efforts are made to proofread this document, sound alike and grammatical errors may occur. Departure - Departure Disposition: 01 Home, Self Care Clinical Impression: Dehydration UTI (urinary tract infection) Qualifiers: Urinary tract infection type: acute cystitis Hematuria presence: without hematuria Qualified Code(s): N30.00 - Acute cystitis without hematuria Condition: Good Instructions: ED Dehydration, ED UTI Cystitis Female Follow-Up: Iram Paris MD [Primary Care Provider] - Within 1 week Prescriptions: Nitrofurantoin [Macrobid] 100 mg PO BID #10 cap Ondansetron Odt [Zofran] 4 mg TL Q6H PRN #10 tablet PRN Reason: Nausea / Vomiting Comments: Take all antibiotics until gone. Make sure you are drinking plenty of water at home. Return if you worsen. You were given 2 L of IV fluid tonight. Your prescriptions were sent to [facility] in [place]. Discharge Date/Time: 12/22/21 19:07
[2021-12-22 16:16] LABS: ALBUMIN 4.3 g/dL (3.2-5.5); ALBUMIN/GLOBULIN RATIO 1.2 (1.0-2.2); BILIRUBIN,TOTAL 1.1 mg/dL (0.2-1.0); CALCIUM 9.2 mg/dL (8.5-10.3); CREATININE 0.8 mg/dL (0.4-1.0); POTASSIUM 3.6 mmol/L (3.5-5.0); TOTAL PROTEIN 7.9 g/dL (6.7-8.2)
[2021-12-22 17:31] LABS: BILIRUBIN,URINE NEGATIVE (NEGATIVE); GLUCOSE, URINE (UA) NEGATIVE (NEGATIVE); KETONES,URINE (UA) 40 mg/dL (NEGATIVE); LEUKOCYTE ESTERASE, URINE TRACE (NEGATIVE); NITRITE,URINE NEGATIVE (NEGATIVE); OCCULT BLOOD,URINE NEGATIVE (NEGATIVE); PH,URINE 5.5 PH (5.0-7.5); PROTEIN,URINE NEGATIVE (NEGATIVE); UROBILINOGEN,URINE 0.2 (NORMAL) E.U./dL (NORMAL)
[2021-12-22 17:36] LABS: CLARITY,URINE HAZY (CLEAR); HCG UR QUAL NEGATIVE
[2021-12-22 17:56] LABS: BACTERIA,URINE Rare /HPF (None Seen); MUCUS,URINE Moderate Strands; RBC,URINE 0-5 /HPF (0-5); SQUAMOUS EPITHELIAL CELL,UR FEW Squamous (<= Few)
[2021-12-22 19:02] VITALS: BP 101/57
== END 2021-12-22 19:07 | disposition home or self-care (01) ==
LOC: ED 14:52
DX: N30.00 Acute cystitis without hematuria (principal); E86.0 Dehydration
CPT/HCPCS: 36415; 80053; 81001; 81003; 81025; 83690; 85025; 87077; 87086; 93005; 96361; 96374; 99282

== ENCOUNTER 2022-03-05 08:00 | Outpatient (CLI) | payer MEDICAID ==
[2022-03-05 15:56] LABS: BASOPHILS % (AUTO) 0.8 %; EOSINOPHILS # (AUTO) 0.1 10^3/uL (0.0-0.7); EOSINOPHILS % (AUTO) 1.7 %; HCT - HEMATOCRIT 36.7 % (37.0-47.0); LYMPHOCYTES # (AUTO) 2.3 10^3/uL (1.5-3.5); LYMPHOCYTES % (AUTO) 42.8 %; MEAN CORPUSCULAR HEMOGLOBIN 29.9 pg (27.0-31.0); MEAN CORPUSCULAR HGB CONC 32.7 g/dL (32.0-36.0); MEAN CORPUSCULAR VOLUME 91.5 fL (81.0-99.0); MEAN PLATELET VOLUME 11.4 fL (7.9-10.8); MONOCYTES # (AUTO) 0.4 10^3/uL (0.0-1.0); NEUTROPHILS # (AUTO) 2.5 10^3/uL (1.5-6.6); NEUTROPHILS % (AUTO) 47.5 %; PLT - PLATELET COUNT 233 10^3/uL (130-450); RED BLOOD COUNT 4.01 10^6/uL (4.20-5.40); RED CELL DISTRIBUTION WIDTH 12.6 % (12.0-15.0); WHITE BLOOD COUNT 5.3 x10^3/uL (4.8-10.8)
[2022-03-05 16:18] LABS: ALBUMIN 4.4 g/dL (3.2-5.5); ALBUMIN/GLOBULIN RATIO 1.3 (1.0-2.2); CALCIUM 9.2 mg/dL (8.5-10.3); CREATININE 0.7 mg/dL (0.4-1.0); POTASSIUM 3.9 mmol/L (3.5-5.0); TOTAL PROTEIN 7.7 g/dL (6.7-8.2)
[2022-03-05 16:29] LABS: THYROID STIMULATING HORMONE 2.28 uIU/mL (0.34-5.60)
== END 2022-03-05 23:59 | disposition home or self-care (01) ==
LOC: LAB.R 08:00
PROVIDERS: ATTEND Internal Medicine
DX: D64.9 Anemia, unspecified (principal); R53.83 Other fatigue
CPT/HCPCS: 80053; 82607; 82728; 82746; 83540; 84443; 84466; 85025

== ENCOUNTER 2022-04-30 08:00 | Outpatient (CLI) | payer OTHER ==
[2022-04-30 22:11] LABS: BACTERIAL VAGINOSIS DNA POSITIVE (NEGATIVE); CANDIDA GLABRATA DNA NEGATIVE (NEGATIVE); CANDIDA GROUP DNA NEGATIVE (NEGATIVE); CANDIDA KRUSEI DNA NEGATIVE (NEGATIVE); TRICHOMONAS VAGINALIS DNA NEGATIVE (NEGATIVE)
== END 2022-04-30 23:59 | disposition home or self-care (01) ==
LOC: LAB.WC 08:00
PROVIDERS: ATTEND Nurse Practitioner
DX: N89.8 Other specified noninflammatory disorders of vagina (principal)
CPT/HCPCS: 81514

== ENCOUNTER 2022-05-02 23:38 | Emergency (ER) | payer MEDICAID, OTHER ==
[2022-05-03] MEDS ORDERED: SODIUM CHLORIDE 0.9% 1,000 ML IV STA (00:12)
[2022-05-03] MEDS ORDERED: ONDANSETRON 4 MG/2 ML VIAL IVP STA (00:12)
[2022-05-03] MEDS ORDERED: MORPHINE 10 MG/ML VIAL IVP STA (00:12)
[2022-05-03 00:31] LABS: BASOPHILS % (AUTO) 0.2 %; EOSINOPHILS # (AUTO) 0.1 10^3/uL (0.0-0.7); EOSINOPHILS % (AUTO) 0.8 %; HCT - HEMATOCRIT 38.3 % (37.0-47.0); LYMPHOCYTES # (AUTO) 1.2 10^3/uL (1.5-3.5); LYMPHOCYTES % (AUTO) 11.6 %; MEAN CORPUSCULAR HEMOGLOBIN 30.3 pg (27.0-31.0); MEAN CORPUSCULAR HGB CONC 33.9 g/dL (32.0-36.0); MEAN CORPUSCULAR VOLUME 89.3 fL (81.0-99.0); MEAN PLATELET VOLUME 10.2 fL (7.9-10.8); MONOCYTES # (AUTO) 0.5 10^3/uL (0.0-1.0); MONOCYTES % (AUTO) 4.9 %; NEUTROPHILS # (AUTO) 8.3 10^3/uL (1.5-6.6); NEUTROPHILS % (AUTO) 82.2 %; PLT - PLATELET COUNT 207 10^3/uL (130-450); RED BLOOD COUNT 4.29 10^6/uL (4.20-5.40); RED CELL DISTRIBUTION WIDTH 12.3 % (12.0-15.0); WHITE BLOOD COUNT 10.2 x10^3/uL (4.8-10.8)
[2022-05-03 00:40] LABS: ALBUMIN 4.5 g/dL (3.2-5.5); ALBUMIN/GLOBULIN RATIO 1.4 (1.0-2.2); BILIRUBIN,TOTAL 1.2 mg/dL (0.2-1.0); CALCIUM 8.8 mg/dL (8.5-10.3); CREATININE 0.7 mg/dL (0.4-1.0); POTASSIUM 3.6 mmol/L (3.5-5.0); TOTAL PROTEIN 7.7 g/dL (6.7-8.2)
[2022-05-03 01:32] LABS: BILIRUBIN,URINE NEGATIVE (NEGATIVE); GLUCOSE, URINE (UA) NEGATIVE (NEGATIVE); KETONES,URINE (UA) 40 mg/dL (NEGATIVE); LEUKOCYTE ESTERASE, URINE TRACE (NEGATIVE); NITRITE,URINE NEGATIVE (NEGATIVE); OCCULT BLOOD,URINE NEGATIVE (NEGATIVE); PH,URINE 5.5 PH (5.0-7.5); PROTEIN,URINE NEGATIVE (NEGATIVE); UROBILINOGEN,URINE 0.2 (NORMAL) E.U./dL (NORMAL)
[2022-05-03 01:42] LABS: BACTERIA,URINE Rare /HPF (None Seen); CLARITY,URINE CLEAR (CLEAR); HCG UR QUAL NEGATIVE; RBC,URINE None Seen /HPF (0-5); SQUAMOUS EPITHELIAL CELL,UR FEW Squamous (<= Few); WBC,URINE 0-3 /HPF (0-5)
--- NOTE | 2022-05-03 03:36 | ED Physician Documentation ---
History of Present Illness - Stated complaint Stated Complaint: ABD PX,N/V - Chief complaint Chief Complaint: Abd Pain - History obtained from History obtained from: Patient - Additonal information Additional information: 32-year-old woman with past medical history of right ovarian cyst , not currently , presents with 4-6 episodes of nonbloody nonbilious nausea and vomiting since 2029. Patient had her copper IUD taken out on Saturday and has had some spotting since then. She developed cramping and back pain this evening in the lower abdomen that was nonradiating, aching, moderate severity, constant, accompanied by vomiting. of note she states she tested positive for BV on recent pelvic exam but did not undergo treatment because it was asymptomatic. Review of Systems Ten Systems: 10 systems reviewed and negative Constitutional: denies: Fever, Chills GI: reports: Abdominal Pain, Nausea, Vomiting : denies: Dysuria, Frequency, Hematuria PD PAST MEDICAL HISTORY - Past Medical History Cardiovascular: None Respiratory: None Endocrine/Autoimmune: None - Past Surgical History Past Surgical History: No General: Cholecystectomy Ortho: Hip replacement /[employer]: Dilation and currettage - Present Medications Home Medications: Ambulatory Orders Medication Instructions Recorded Confirmed Multivitamin 1 tab PO DAILY 12/22/21 12/22/21 Nitrofurantoin [Macrobid] 100 mg PO BID #10 cap 12/22/21 Ondansetron Odt [Zofran] 4 mg TL Q6H PRN #10 tablet 12/22/21 Ondansetron Odt [Zofran Odt] 4 mg TL Q6H PRN #10 tablet 05/03/22 - Allergies Allergies/Adverse Reactions: Allergies Allergy/AdvReac Type Severity Reaction Status Date / Time Penicillins Allergy Rash Verified 05/02/22 23:45 - Social History Does the pt smoke?: No Smoking Status: Never smoker Does the pt drink ETOH?: No Does the pt have substance abuse?: No - Immunizations Immunizations are current?: No Immunizations: TDAP >10years/unknown - POLST Patient has POLST: No PD ED PE NORMAL - Vitals Vital signs reviewed: Yes - General General: Alert and oriented X 3, Well developed/nourished, Other (uncomfortable and anxious appearing) - HEENT HEENT: Atraumatic, PERRL, EOMI - Neck Neck: Supple, no meningeal sign - Cardiac Cardiac: RRR - Respiratory Respiratory: No respiratory distress, Clear bilaterally - Abdomen Abdomen: Non tender, Non distended - Back Back: No CVA TTP - Derm Derm: Normal color, Warm and dry - Extremities Extremities: No edema - Neuro Neuro: Alert and oriented X 3, No motor deficit, No sensory deficit - Psych Psych: Normal mood, Normal affect Results - Vitals Vitals: Vital Signs - 24 hr 05/02/22 05/03/22 05/03/22 23:41 01:28 03:08 Temperature 36.6 C Heart Rate 113 H 93 78 Respiratory 18 16 16 Rate Blood Pressure 118/68 110/70 O2 Saturation 98 97 99 05/03/22 03:52 Temperature Heart Rate 101 H Respiratory 18 Rate Blood Pressure 107/67 O2 Saturation 99 Oxygen O2 Source Room air - Labs Labs: Laboratory Tests 05/03/22 05/03/22 05/03/22 00:22 00:22 00:22 WBC 10.2 RBC 4.29 Hgb 13.0 Hct 38.3 MCV 89.3 MCH 30.3 MCHC 33.9 RDW 12.3 Plt Count 207 MPV 10.2 Neut # (Auto) 8.3 H Lymph # (Auto) 1.2 L [place] # (Auto) 0.5 Eos # (Auto) 0.1 Baso # (Auto) 0.0 Absolute Nucleated RBC 0.00 Nucleated RBC % 0.0 Sodium 136 Potassium 3.6 Chloride 105 Carbon Dioxide 24 Anion Gap 7.0 BUN 12 Creatinine 0.7 Estimated GFR (MDRD) 97 Glucose 107 H Lactic Acid 0.7 Calcium 8.8 Total Bilirubin 1.2 H AST 15 ALT 15 Alkaline Phosphatase 45 Total Protein 7.7 Albumin 4.5 Globulin 3.2 Albumin/Globulin Ratio 1.4 Lipase 32 Urine Color Urine Clarity Urine pH Ur Specific [place] Urine Protein Urine Glucose (UA) Urine Ketones Urine Occult Blood Urine Nitrite Urine Bilirubin Urine Urobilinogen Ur Leukocyte Esterase Urine RBC Urine WBC Ur Squamous Epith Cells Urine Bacteria Urine Culture Comments Urine HCG, Qual 05/03/22 05/03/22 01:28 01:28 WBC RBC Hgb Hct MCV MCH MCHC RDW Plt Count MPV Neut # (Auto) Lymph # (Auto) [place] # (Auto) Eos # (Auto) Baso # (Auto) Absolute Nucleated RBC Nucleated RBC % Sodium Potassium Chloride Carbon Dioxide Anion Gap BUN Creatinine Estimated GFR (MDRD) Glucose Lactic Acid Calcium Total Bilirubin AST ALT Alkaline Phosphatase Total Protein Albumin Globulin Albumin/Globulin Ratio Lipase Urine Color YELLOW Urine Clarity CLEAR Urine pH 5.5 Ur Specific [place] 1.025 Urine Protein NEGATIVE Urine Glucose (UA) NEGATIVE Urine Ketones 40 H Urine Occult Blood NEGATIVE Urine Nitrite NEGATIVE Urine Bilirubin NEGATIVE Urine Urobilinogen 0.2 (NORMAL) Ur Leukocyte Esterase TRACE H Urine RBC None Seen Urine WBC 0-3 Ur Squamous Epith Cells FEW Squamous Urine Bacteria Rare Urine Culture Comments INDICATED Urine HCG, Qual NEGATIVE PD MEDICAL DECISION MAKING - ED course ED course: 32-year-old woman presented with nausea and vomiting of abdominal pain this past evening, resolving after IV morphine and Zofran were provided in the emergency department. Patient has had issues with pelvic cramping in the past and had her IUD out on Saturday. She was diagnosed with bacterial vaginosis at that time. Марина kelly also notes that she may have a right ovarian cyst. Since her symptoms have completely resolved in the emergency department and we do not have ultrasound available I am going to recommend that she follow-up with her [employer] for further management and fill her prescription for Zofran which was sent to her pharmacy. Strict return precautions were given. Departure - Departure Disposition: 01 Home, Self Care Clinical Impression: Abdominal cramping, Nausea and vomiting Condition: Good Instructions: Abdominal Pain, ED Nausea Vomiting Prescriptions: Ondansetron Odt [Zofran Odt] 4 mg TL Q6H PRN #10 tablet PRN Reason: Nausea / Vomiting Comments: You were seen in the emergency department for abdominal cramping, pelvic pain, and vomiting. But you are feeling better! A prescription for Zofran was sent to the [facility] in [place]. Please follow-up with your [employer] this week. See a doctor right away if you develop pain with urination or increased frequency of urination. Return to the emergency department if you have any new or worsening symptoms or other concerns. Discharge Date/Time: 05/03/22 03:52
[2022-05-03 03:53] VITALS: BP 107/67
[2022-05-03] MEDS ORDERED: ONDANSETRON ODT 4 MG Prepack 2 TL STA (03:56)
== END 2022-05-03 03:52 | disposition home or self-care (01) ==
LOC: ED 23:38
DX: R10.9 Unspecified abdominal pain (principal); R11.2 Nausea with vomiting, unspecified
CPT/HCPCS: 36415; 80053; 81001; 81025; 83605; 83690; 85025; 87086; 96374; 99282

== ENCOUNTER 2022-05-26 11:04 | Outpatient (CLI) | payer OTHER ==
--- NOTE | 2022-05-27 20:48 | MRI Report ---
PROCEDURE: LUMBAR SPINE WO INDICATIONS: LOW BACK PAIN TECHNIQUE: Noncontrast sagittal T1 spin echo and T2 fast echo, sagittal STIR, axial T1 and T2 fast spin echo thr ough the lumbar spine. In cases with scoliosis, additional coronal T2 fast spin echo may be performe d. COMPARISON: None. FINDINGS: Image quality: Excellent. Alignment and Curvature: There is normal bony alignment. Bone Marrow: Marrow is of normal overall signal. No acute vertebral body compression fractures. Spinal Cord: Conus medullaris terminates at the normal level. Visualized cord demonstrates normal s ignal and size. Paraspinous Soft Tissues: No paravertebral masses. T12-L1: Normal in appearance. L1-L2: Normal in appearance. L2-L3: Normal in appearance. L3-L4: Normal in appearance. L4-L5: Normal in appearance. L5-S1: Normal in appearance. IMPRESSION: Essentially unremarkable MRI of the lumbar spine. No acute finding, significant degenerat anuel change, spinal canal stenosis, neural foraminal stenosis, or evidence of focal nerve root impinge ment. Reviewed by: Burke Light MD on 05/27/2022 8:46 PM PDT Approved by: Burke Light MD on 05/27/2022 8:46 PM PDT Station ID: [id number]
== END 2022-05-26 11:05 | disposition home or self-care (01) ==
LOC: DI 11:04
PROVIDERS: ATTEND Registered Nurse Ambulatory Care
DX: M54.50 Low back pain, unspecified (principal)

== ENCOUNTER 2022-06-05 10:26 | Outpatient (CLI) | payer MEDICAID ==
--- NOTE | 2022-06-05 12:10 | XRAY Report ---
PROCEDURE: Ankle 3 View LT INDICATIONS: PAIN IN LEFT LEG TECHNIQUE: 3 views of the ankle were acquired. COMPARISON: None FINDINGS: Bones: No fractures or dislocations. Ankle mortise is normally aligned. No suspicious bony lesions . Soft tissues: No tibiotalar joint effusion. Achilles tendon appears normal. IMPRESSION: No ankle fracture or dislocation. Ankle mortise is congruent. No gross soft tissue abnor malities. Reviewed by: Dariel Ortega MD on 06/05/2022 12:09 PM PDT Approved by: Dariel Ortega MD on 06/05/2022 12:09 PM PDT Station ID: [id number]
== END 2022-06-05 10:27 | disposition home or self-care (01) ==
LOC: DI 10:26
PROVIDERS: ATTEND Internal Medicine
DX: M79.605 Pain in left leg (principal)

== ENCOUNTER 2022-06-26 15:16 | Outpatient (CLI) | payer OTHER ==
--- NOTE | 2022-06-26 17:01 | XRAY Report ---
PROCEDURE: Tib/Fib LT INDICATIONS: LEFT LEG PAIN TECHNIQUE: 2 views of the tibia and fibula were acquired. COMPARISON: None FINDINGS: Bones: No fractures or dislocations. No suspicious bony lesions. Soft tissues: No suspicious soft tissue calcifications or masses. IMPRESSION: Normal tibia and fibular radiographs Reviewed by: Luiz Hinds MD on 06/26/2022 3:59 PM [place] Approved by: Luiz Hnids MD on 06/26/2022 3:59 PM [place] Station ID: [id number]
--- NOTE | 2022-06-26 17:11 | XRAY Report ---
PROCEDURE: Ankle 3 View LT INDICATIONS: LEFT ANKLE PAIN TECHNIQUE: 3 views of the ankle were acquired. COMPARISON: None FINDINGS: Bones: No fractures or dislocations. Ankle mortise is normally aligned. No suspicious bony lesions . Soft tissues: No tibiotalar joint effusion. Achilles tendon appears normal. IMPRESSION: Unremarkable left ankle radiographs Reviewed by: Luiz Hinds MD on 06/26/2022 4:10 PM RUST Approved by: Luiz Hinds MD on 06/26/2022 4:10 PM RUST Station ID: [id number]
== END 2022-06-26 15:17 | disposition home or self-care (01) ==
LOC: DI.WOS 15:16
PROVIDERS: ATTEND Physician Assistant Surgical
DX: S86.112A Strain of other muscle(s) and tendon(s) of posterior muscle group at lower leg level, left leg, initial encounter (principal)

== ENCOUNTER 2023-09-10 13:15 | Outpatient (CLI) | payer MEDICAID, OTHER ==
--- NOTE | 2023-09-11 08:08 | XRAY Report ---
PROCEDURE: Shoulder 2+V LT INDICATIONS: LEFT SHOULDER PAIN TECHNIQUE: 3 views of the shoulder were acquired. COMPARISON: None. FINDINGS: Bones: No fractures or dislocations. No suspicious bony lesions. Visualized ribs appear intact. Soft tissues: No suspicious soft tissue calcifications. The visualized lungs are within normal limi ts. IMPRESSION: No acute bony abnormality. If clinical symptoms persist or there is clinical suspicion for internal d erangement, consider MRI. Reviewed by: Sapphire Carrion MD on 09/11/2023 8:06 AM PST Approved by: Sapphire Carrion MD on 09/11/2023 8:06 AM PST Station ID: [id number]
== END 2023-09-10 13:30 | disposition home or self-care (01) ==
LOC: DI.N 13:15
PROVIDERS: ATTEND Nurse Practitioner
DX: M25.512 Pain in left shoulder (principal)

== ENCOUNTER 2023-12-16 08:36 | Outpatient (CLI) | payer OTHER ==
--- NOTE | 2023-12-16 23:05 | XRAY Report ---
PROCEDURE: Shoulder 1V LT INDICATIONS: LEFT SHOULDER PAIN TECHNIQUE: 1 views of the shoulder were acquired. COMPARISON: 09/10/2023 FINDINGS: Single axillary view shows normal bone mineralization without gross displaced fracture or dislocation IMPRESSION: No displaced fracture or dislocation Reviewed by: Luiz Hinds MD on 12/16/2023 10:04 PM AKZHANE Approved by: Luiz Hinds MD on 12/16/2023 10:04 PM AKZHANE Station ID: [id number]
== END 2023-12-16 08:37 | disposition home or self-care (01) ==
LOC: DI 08:36
PROVIDERS: ATTEND Physician Assistant Surgical
DX: M25.512 Pain in left shoulder (principal)